=== PATIENT | male | born 1970 | race Caucasian/White ===

== ENCOUNTER 2017-10-08 12:00 | Inpatient (IN) | payer OTHER ==
[~2017-10-08] VITALS: Ht 185.4 cm; Wt 88.5 kg
[2017-10-18] MEDS ORDERED: IMODIUM A-D2 M2 PO (09:55)
[2017-10-18] MEDS ORDERED: HYOSCYAMINE0.125 M1 SL (09:55)
[2017-10-18] MEDS ORDERED: OXYC1TAB9 PO (09:55)
[2017-10-18] MEDS ORDERED: GAS RELIEF125 M1 PO (09:56)
== END 2017-10-18 10:31 | disposition home health service (06) | DRG 331 ==
LOC: O/R 10-14 05:45 → SURH 10-14 05:45
PROVIDERS: Surgery
PROC: 07TC4ZZ Resection of Pelvis Lymphatic, Percutaneous Endoscopic Approach (ICD-10-PCS; 2017-10-14)
PROC: 0D1B4Z4 Bypass Ileum to Cutaneous, Percutaneous Endoscopic Approach (ICD-10-PCS; 2017-10-14)
PROC: 0DJD8ZZ Inspection of Lower Intestinal Tract, Via Natural or Artificial Opening Endoscopic (ICD-10-PCS; 2017-10-14)
PROC: 0DTE4ZZ Resection of Large Intestine, Percutaneous Endoscopic Approach (ICD-10-PCS; principal; 2017-10-14 07:00)
DX: C20 Malignant neoplasm of rectum (principal); R59.0 Localized enlarged lymph nodes

== ENCOUNTER 2018-07-14 13:30 | Inpatient (IN) | payer OTHER ==
[~2018-07-14] VITALS: Ht 182.9 cm; Wt 81.6 kg
[~2018-07-14 13:30] MED LIST: GAS RELIEF125 M1 PO; HYOSCYAMINE0.125 M1 SL; IMODIUM A-D2 M2 PO; OXYC1TAB9 PO
[2018-07-14] MEDS ORDERED: CENTRUM SILVER1 EAC1 PO (16:11)
[2018-07-14] MEDS ORDERED: B-121000 MCG PO (16:11)
[2018-07-14] MEDS ORDERED: VIT C-ROSE HIP500 MG PO (16:12)
[2018-07-24] MEDS ORDERED: PERCOCET 5-3251 EACH PO (13:00)
[2018-07-24] MEDS ORDERED: CHOLESTYRAMINE P4 GM PO (13:00)
== END 2018-07-24 13:56 | disposition home or self-care (01) | DRG 330 ==
LOC: SURH 07-19 05:50 → O/R 07-19 05:50 → SURH 07-19 10:49
PROVIDERS: ADMIT Surgery
PROC: 0DQB4ZZ Repair Ileum, Percutaneous Endoscopic Approach (ICD-10-PCS; principal; 2018-07-19 11:30)
PROC: 0JPV3WZ Removal of Totally Implantable Vascular Access Device from Upper Extremity Subcutaneous Tissue and Fascia, Percutaneous Approach (ICD-10-PCS; 2018-07-19 11:30)
DX: Z43.2 Encounter for attention to ileostomy (principal); C20 Malignant neoplasm of rectum; D50.0 Iron deficiency anemia secondary to blood loss (chronic); R73.01 Impaired fasting glucose

== ENCOUNTER 2019-02-24 07:20 | Day surgery (SDC) | payer OTHER ==
[~2019-02-24 07:20] MED LIST changes: +B-121000 MCG PO; +CENTRUM SILVER1 EAC1 PO; +CHOLESTYRAMINE P4 GM PO; +PERCOCET 5-3251 EACH PO; +VIT C-ROSE HIP500 MG PO
== END 2019-02-24 12:00 | disposition home or self-care (01) ==
LOC: AMB-ENDOS 07:20
DX: R19.8 Other specified symptoms and signs involving the digestive system and abdomen (principal); Z85.048 Personal history of other malignant neoplasm of rectum, rectosigmoid junction, and anus

== ENCOUNTER 2020-04-05 08:15 | Day surgery (SDC) | payer OTHER | END 2020-04-05 14:15 | disposition home or self-care (01) | LOC: AMB-ENDOS 08:15 | PROVIDERS: ATTEND Surgery | DX: K62.89 Other specified diseases of anus and rectum (principal); Z20.828 Contact with and (suspected) exposure to other viral communicable diseases ==

== ENCOUNTER → 2020-12-27 | Day surgery (SDC) | payer OTHER | END | disposition home or self-care (01) | LOC: ADM 12-20 14:00 → AMB-ENDOS 11:15 | PROVIDERS: ATTEND Surgery | DX: K62.89 Other specified diseases of anus and rectum (principal) ==